=== PATIENT | female | born 1965 | race Caucasian/White ===

== ENCOUNTER 2017-06-29 11:59 | Emergency (ER) | payer BC ==
[~2017-06-29] VITALS: Ht 162.6 cm; Wt 130.2 kg
[2017-06-29] MEDS ORDERED: BP MED (12:03)
== END 2017-06-29 13:40 | disposition home or self-care (01) ==
LOC: SED 11:59
DX: L23.7 Allergic contact dermatitis due to plants, except food (principal); I10 Essential (primary) hypertension
CPT/HCPCS: 96372; 99283; J2930